=== PATIENT | male | born 1960 | race Caucasian/White ===

== ENCOUNTER 2019-04-20 10:36 | Emergency (ER) | payer MEDICAID ==
[~2019-04-20] VITALS: Ht 172.7 cm; Wt 110.0 kg
[2019-04-20] MEDS ORDERED: acetaminophen 325mg tablet PO ONE (11:40)
[2019-04-20] MEDS ORDERED: ketorolac trometh inj. 60 MG/2 ML VIAL IM ONE (11:40)
[2019-04-20 13:00] VITALS: BP 131/89
[2019-04-20] MEDS ORDERED: SULF1TAB49 PO (13:03)
[2019-04-20] MEDS ORDERED: MELO-100 PO (13:03)
[2019-04-20] MEDS ORDERED: sulfamethoxazole/trimethoprim DS (800/160mg) tablet PO ONE (13:05)
== END 2019-04-20 13:36 | disposition home or self-care (01) ==
LOC: ER 10:37
DX: N50.811 Right testicular pain (principal); Z90.89 Acquired absence of other organs; Z79.899 Other long term (current) drug therapy
CPT/HCPCS: 76870; 96372; 99284; J1885

== ENCOUNTER 2019-05-05 16:21 | Emergency (ER) | payer MEDICAID ==
[~2019-05-05] VITALS: Ht 175.3 cm; Wt 120.0 kg
[~2019-05-05 16:21] MED LIST: MELO-100 PO
[2019-05-05 19:36] LABS: ALANINE AMINOTRANSFERASE 62 U/L (12-78); ALBUMIN 2.4 G/DL (3.4-5.0); ALKALINE PHOSPHATASE 210 IU/L (46-116); ANION GAP 8 (8-16); CALCIUM 8.7 MG/DL (8.5-10.1); CHLORIDE 102 MMOL/L (99-107); CREATININE 0.93 MG/DL (0.60-1.10); POTASSIUM 3.9 MMOL/L (3.5-5.1); SODIUM 136 MMOL/L (135-145); TOTAL CARBON DIOXIDE 26.3 MMOL/L (24-32); eGFR 84 ML/MIN
[2019-05-05 19:44] LABS: MAGNESIUM 2.1 MG/DL (1.5-2.4); TROPONIN I < 0.04 NG/ML (0.0-0.05)
[2019-05-05 19:59] LABS: BILIRUBIN,TOTAL 2.2 MG/DL (0.1-1.0); D-DIMER 2.23 MG/L FEU (0-0.50); GLUCOSE 115 MG/DL (70-104)
[2019-05-05 20:06] LABS: ALBUMIN/GLOBULIN RATIO 0.3 (1.1-1.5); ASPARTATE AMINO TRANSFERASE 75 U/L (10-37); TOTAL PROTEIN 9.4 G/DL (6.4-8.2)
[2019-05-05 20:07] LABS: BLOOD UREA NITROGEN 9 MG/DL (7-18); BUN/CREATININE RATIO 9.7 (5.4-32.0)
[2019-05-05] MEDS ORDERED: iohexol 350MG/ML 100ml bottle IV ONE (20:18)
[2019-05-05] MEDS ORDERED: normal saline 1000ML IV soln IVB ONE (20:20)
[2019-05-05 20:29] LABS: LYMPHOCYTES # (AUTO) 2.5 X10'3 (1.1-4.8); WHITE BLOOD COUNT 11.5 X10'3 (4.5-11.0)
[2019-05-05 20:31] LABS: BASOPHILS # (AUTO) 0.1 X10'3 (0-0.2); BASOPHILS % (AUTO) 0.8 % (0-1); EOSINOPHILS # (AUTO) 0.4 X10'3 (0-0.9); EOSINOPHILS % (AUTO) 3.1 % (0-6); HEMATOCRIT 38.6 % (42.0-52.0); HEMOGLOBIN 13.1 g/dl (14.0-17.9); LYMPHOCYTES % (AUTO) 22.1 % (21-51); MEAN CORPUSCULAR HEMOGLOBIN 29.4 PG (27.0-31.0); MEAN CORPUSCULAR VOLUME 86.5 FL (78-98); MEAN PLATELET VOLUME 8.5 FL (7.4-10.4); MONOCYTES # (AUTO) 1.7 X10'3 (0-0.9); MONOCYTES % (AUTO) 15.1 % (2-12); NEUTROPHILS # (AUTO) 6.8 X10'3 (1.8-7.7); NEUTROPHILS % (AUTO) 58.9 % (42-75); PLATELET COUNT 145 X10'3 (140-440); RED BLOOD COUNT 4.46 X10'6 (4.70-6.10); RED CELL DISTRIBUTION WIDTH 18.6 % (11.5-14.5)
[2019-05-05 21:02] LABS: TOTAL CELLS COUNTED 100
[2019-05-05 21:03] LABS: ANISOCYTOSIS 2+; LARGE PLATELETS FEW; PLATELET ESTIMATE NORMAL; SMUDGE CELLS 1+; TARGET CELLS FEW
[2019-05-05 21:28] VITALS: BP 124/83
== END 2019-05-05 23:05 | disposition home or self-care (01) ==
LOC: ER 16:21
DX: R07.89 Other chest pain (principal); R05 Cough; I10 Essential (primary) hypertension; F15.90 Other stimulant use, unspecified, uncomplicated; F17.200 Nicotine dependence, unspecified, uncomplicated; Z98.890 Other specified postprocedural states; Z79.899 Other long term (current) drug therapy
CPT/HCPCS: 71045; 71275; 80053; 83735; 83880; 84484; 85025; 85379; 99284; J7030; Q9967; 93005

== ENCOUNTER 2019-06-12 16:07 | Emergency (ER) | payer MEDICAID, OTHER ==
[~2019-06-12] VITALS: Ht 172.7 cm; Wt 107.3 kg
[~2019-06-12 16:07] MED LIST changes: +adenosine 3mg/ml 2ml vial IV ONE; +etomidate 2mg/ml inj. ONE; +sod chloride 0.9% 10ml flush syringe IV ONE
[2019-06-12 16:29] LABS: BASOPHILS # (AUTO) 0.1 X10'3 (0-0.2); BASOPHILS % (AUTO) 1.4 % (0-1); EOSINOPHILS # (AUTO) 0.6 X10'3 (0-0.9); EOSINOPHILS % (AUTO) 6.7 % (0-6); HEMATOCRIT 47.5 % (42.0-52.0); HEMOGLOBIN 16.3 g/dl (14.0-17.9); LYMPHOCYTES % (AUTO) 34.6 % (21-51); MEAN CORPUSCULAR HEMOGLOBIN 29.6 PG (27.0-31.0); MEAN CORPUSCULAR HGB CONC 34.3 g/dL (33.0-36.5); MEAN CORPUSCULAR VOLUME 86.5 FL (78-98); MEAN PLATELET VOLUME 8.1 FL (7.4-10.4); MONOCYTES # (AUTO) 1.2 X10'3 (0-0.9); MONOCYTES % (AUTO) 13.1 % (2-12); NEUTROPHILS # (AUTO) 3.9 X10'3 (1.8-7.7); NEUTROPHILS % (AUTO) 44.2 % (42-75); PLATELET COUNT 215 X10'3 (140-440); RED BLOOD COUNT 5.49 X10'6 (4.70-6.10); RED CELL DISTRIBUTION WIDTH 15.7 % (11.5-14.5); WHITE BLOOD COUNT 8.8 X10'3 (4.5-11.0)
[2019-06-12] MEDS ORDERED: etomidate 2mg/ml inj. IV ONE (16:30)
[2019-06-12] MEDS ORDERED: diltiazem 5mg/ml 5ml inj. IV ONE (16:40)
[2019-06-12 16:43] LABS: ALANINE AMINOTRANSFERASE 69 U/L (12-78); ALBUMIN 3.2 G/DL (3.4-5.0); ALBUMIN/GLOBULIN RATIO 0.6 (1.1-1.5); ALKALINE PHOSPHATASE 138 IU/L (46-116); ANION GAP 10 (8-16); ASPARTATE AMINO TRANSFERASE 97 U/L (10-37); BILIRUBIN,TOTAL 0.7 MG/DL (0.1-1.0); BLOOD UREA NITROGEN 7 MG/DL (7-18); BUN/CREATININE RATIO 7.7 (5.4-32.0); CALCIUM 8.7 MG/DL (8.5-10.1); CHLORIDE 104 MMOL/L (99-107); CREATININE 0.91 MG/DL (0.60-1.10); SODIUM 137 MMOL/L (135-145); TOTAL CARBON DIOXIDE 22.6 MMOL/L (24-32); TOTAL PROTEIN 8.9 G/DL (6.4-8.2); eGFR 86 ML/MIN
[2019-06-12 16:44] LABS: GLUCOSE 120 MG/DL (70-104); POTASSIUM 3.8 MMOL/L (3.5-5.1)
--- NOTE | 2019-06-12 16:56 | NUR ---
relieving RN for break, pt is resting quietly on gurney, resp even and unlabored, HR SR on the monitor, no ectopy
--- NOTE | 2019-06-12 20:13 | NUR ---
[address]ND CALL DR. GALLEGOS AT 20:12
[2019-06-12] MEDS ORDERED: DILT120C94 PO (20:36)
[2019-06-12] MEDS ORDERED: METO-539 PO (20:42)
[2019-06-12 21:17] VITALS: BP 127/84
== END 2019-06-12 21:17 | disposition home or self-care (01) ==
LOC: ER 16:07
DX: I47.1 Supraventricular tachycardia (principal); I48.91 Unspecified atrial fibrillation; I10 Essential (primary) hypertension; F15.90 Other stimulant use, unspecified, uncomplicated; F10.99 Alcohol use, unspecified with unspecified alcohol-induced disorder; Z90.89 Acquired absence of other organs; Z79.899 Other long term (current) drug therapy; Y90.9 Presence of alcohol in blood, level not specified
CPT/HCPCS: 36415; 71045; 80053; 84484; 85025; 92960; 93005; 96374; 99291; J0153; J3490

== ENCOUNTER 2019-07-15 21:46 | Emergency (ER) | payer MEDICAID, OTHER ==
[~2019-07-15] VITALS: Ht 172.7 cm; Wt 104.0 kg
[~2019-07-15 21:46] MED LIST changes: +DILT120C94 PO; -adenosine 3mg/ml 2ml vial IV ONE; -etomidate 2mg/ml inj. ONE; -sod chloride 0.9% 10ml flush syringe IV ONE
[2019-07-15] MEDS ORDERED: ketorolac tromethamine 15mg/ml inj. IV ONE (22:00)
[2019-07-15] MEDS ORDERED: etomidate 2mg/ml inj. IV ONE ×2 (22:00→22:40)
[2019-07-15] MEDS ORDERED: heparin 10,000 units/1 ML INJ IV ONE (22:00)
[2019-07-15] MEDS ORDERED: ondansetron/PF 4mg/2ml inj IV ONE ×2 (22:00→23:10)
[2019-07-15 22:22] LABS: BASOPHILS # (AUTO) 0.1 X10'3 (0-0.2); BASOPHILS % (AUTO) 0.8 % (0-1); EOSINOPHILS # (AUTO) 0.4 X10'3 (0-0.9); EOSINOPHILS % (AUTO) 5.1 % (0-6); HEMATOCRIT 53.6 % (42.0-52.0); LYMPHOCYTES # (AUTO) 2.6 X10'3 (1.1-4.8); LYMPHOCYTES % (AUTO) 31.2 % (21-51); MEAN CORPUSCULAR HEMOGLOBIN 29.4 PG (27.0-31.0); MEAN CORPUSCULAR HGB CONC 34.5 g/dL (33.0-36.5); MEAN CORPUSCULAR VOLUME 85.3 FL (78-98); MEAN PLATELET VOLUME 8.2 FL (7.4-10.4); MONOCYTES # (AUTO) 0.9 X10'3 (0-0.9); MONOCYTES % (AUTO) 10.5 % (2-12); NEUTROPHILS # (AUTO) 4.4 X10'3 (1.8-7.7); NEUTROPHILS % (AUTO) 52.4 % (42-75); PLATELET COUNT 239 X10'3 (140-440); RED BLOOD COUNT 6.29 X10'6 (4.70-6.10); RED CELL DISTRIBUTION WIDTH 14.3 % (11.5-14.5); WHITE BLOOD COUNT 8.4 X10'3 (4.5-11.0)
[2019-07-15 22:25] LABS: HEMOGLOBIN 18.5 g/dl (14.0-17.9)
[2019-07-15 22:35] LABS: ALANINE AMINOTRANSFERASE 131 U/L (12-78); ALBUMIN 3.2 G/DL (3.4-5.0); ALBUMIN/GLOBULIN RATIO 0.6 (1.1-1.5); ALKALINE PHOSPHATASE 123 IU/L (46-116); ANION GAP 11 (8-16); ASPARTATE AMINO TRANSFERASE 138 U/L (10-37); BILIRUBIN,TOTAL 0.8 MG/DL (0.1-1.0); BLOOD UREA NITROGEN 10 MG/DL (7-18); BUN/CREATININE RATIO 9.9 (5.4-32.0); CALCIUM 9.4 MG/DL (8.5-10.1); CHLORIDE 106 MMOL/L (99-107); CREATININE 1.01 MG/DL (0.60-1.10); POTASSIUM 3.6 MMOL/L (3.5-5.1); SODIUM 142 MMOL/L (135-145); TOTAL CARBON DIOXIDE 25.5 MMOL/L (24-32); TOTAL PROTEIN 8.3 G/DL (6.4-8.2); eGFR 76 ML/MIN
[2019-07-15 22:37] LABS: GLUCOSE 127 MG/DL (70-104)
[2019-07-15] MEDS ORDERED: propofol 1000mg/100ml bottle 100 ML IV ONE (22:39)
[2019-07-15] MEDS ORDERED: normal saline 1000ML IV soln IVB ONE (22:50)
[2019-07-15] MEDS ORDERED: propofol 10mg/ml 20ml vial IV ONE (22:50)
[2019-07-15] MEDS ORDERED: APIX5TAB3 PO (22:53)
[2019-07-15] MEDS ORDERED: SOTA80TA PO (22:53)
--- NOTE | 2019-07-15 23:08 | NUR ---
WASTED PROPOFOL 700MG WITH ARIEL WILHELM
--- NOTE | 2019-07-15 23:14 | NUR ---
DURING MODERATE SEDATION, PT WAS SHOCKED TWICE AT 200J, AT 2243 AND 2244. PT NOW IN SINUS RHYTHEM AT RATE OF 98BPM. PT RECEIVED ETOMIDATE 15MG IV AND PROPOFOL 300MG IV TOTAL FOR CARDIOVERSION. PT AOX4, REPORTS NO PAIN AND STATES "I FEEL GREAT AND GOOD TO GO." SAGE LOVING AWARE OF FINDINGS.
[2019-07-15 23:34] VITALS: BP 122/89
== END 2019-07-15 23:54 | disposition home or self-care (01) ==
LOC: ER 21:47
DX: I48.91 Unspecified atrial fibrillation (principal); I10 Essential (primary) hypertension; F15.90 Other stimulant use, unspecified, uncomplicated; Z90.49 Acquired absence of other specified parts of digestive tract; Z79.899 Other long term (current) drug therapy; Z79.01 Long term (current) use of anticoagulants; Z72.89 Other problems related to lifestyle
CPT/HCPCS: 71045; 80053; 84484; 85025; 92960; 93005; 96374; 96375; 96376; 99152; 99153; 99285; J1644; J1885; J2405; J2704; J7030; 26951

== ENCOUNTER 2021-03-28 09:12 | Emergency (ER) | payer MEDICAID ==
[~2021-03-28 09:12] MED LIST changes: +APIX5TAB3 PO; +SOTA80TA PO
== END 2021-03-28 11:30 | disposition left against medical advice (07) ==
LOC: ER 09:14
DX: Z53.21 Procedure and treatment not carried out due to patient leaving prior to being seen by health care provider (principal)

== ENCOUNTER 2021-03-28 11:48 | Emergency (ER) | payer MEDICAID | END 2021-03-28 14:25 | disposition left against medical advice (07) | LOC: ER 11:48 | DX: Z53.21 Procedure and treatment not carried out due to patient leaving prior to being seen by health care provider (principal) ==